=== PATIENT | male | born 1960 | race Hispanic/Latino ===

== ENCOUNTER 2020-10-01 23:51 | Inpatient (IN) | payer SELFPAY ==
[2020-10-02] MEDS ORDERED: Ondansetron PF 4 MG/2 ML Vial ONE ×2 (00:05→07:41)
[2020-10-02 00:42] LABS: Band 4 % (5-11); Hemoglobin 14.8 g/dL (14.0-18.0); Lymphocytes 44 % (21-51); MDiff Complete? YES; Mean Corpuscular Volume 87.7 fL (78.0-98.0); Metamyelocyte 8 % (0-0); Monocytes 8 % (0-10); Neutrophil 36 % (42-75); Platelet Count 134 thou/uL (130-400); Platelet Morphology Comment Appears Adequate; RBC Distribution Width 12.1 % (11.5-14.5); RBC Morphology Normal; Reflex for Review?? YES; White Blood Cell (WBC) Count 1.6 thou/uL (4.8-10.8)
[2020-10-02] MEDS ORDERED: Morphine 4 MG/ML VIAL ONE ×2 (00:42→01:31)
[2020-10-02] MEDS ORDERED: Acetaminophen 500 MG TAB ONE (01:05)
[2020-10-02 01:19] LABS: ALT (SGPT) 11 U/L (8-55); AST (SGOT) 28 U/L (5-34); Albumin 3.3 g/dL (3.4-4.8); Alkaline Phosphatase 132 U/L (40-110); Anion Gap 17 mmol/L (10-20); BUN (Urea Nitrogen) 15 mg/dL (8.4-25.7); Bilirubin, Total 0.7 mg/dL (0.2-1.2); Calc. Creatinine Clearance 0 mL/min (70-130); Calcium 8.5 mg/dL (7.8-10.44); Carbon Dioxide 19 mmol/L (23-31); Chloride 105 mmol/L (98-107); Globulin 3.8 g/dL (2.4-3.5); Glucose 244 mg/dL (80-115); Lipase 32 U/L (8-78); Potassium 3.8 mmol/L (3.5-5.1); Protein, Total 7.1 g/dL (5.8-8.1); Sodium 137 mmol/L (136-145)
[2020-10-02] MEDS ORDERED: MEROPENEM 1 GM/50 ML 1 GM in Premix Bag 1 BAG IVPB SCH ×4 (02:45→14:00)
[2020-10-02 04:07] VITALS: BMI 29.6
[2020-10-02] MEDS ORDERED: Morphine 4 MG/ML VIAL SLOW IVP PRN ×3 (04:07→09:22)
[2020-10-02] MEDS ORDERED: Ondansetron ODT 4 MG TAB SL PRN (04:15)
[2020-10-02] MEDS ORDERED: Ondansetron PF 4 MG/2 ML Vial IVP PRN (04:15)
[2020-10-02] MEDS ORDERED: Lactated Ringer's 1,000 ML IV SCH (04:15)
[2020-10-02 05:16] LABS: SARS-CoV-2 NAA Rapid Test Not Detected (NotDetected)
[2020-10-02 06:44] LABS: Lactic Acid 3.7 mmol/L (0.5-2.2)
[2020-10-02] MEDS ORDERED: Bupivacaine 0.25% HCL 30 ML VIAL ONE (06:51)
[2020-10-02] MEDS ORDERED: EPINEPHrine 1 MG/ML AMP ONE (06:51)
[2020-10-02] MEDS ORDERED: Fentanyl 100 MCG/2 ML VIAL ONE (06:52)
[2020-10-02] MEDS ORDERED: Levofloxacin 500 mg/D5W 100 ml Premix Bag ONE (07:28)
[2020-10-02] MEDS ORDERED: Succinylcholine 200 MG/10 ml SYRINGE FS ONE (07:41)
[2020-10-02] MEDS ORDERED: Lidocaine 1% PF 5 ML VIAL ONE (07:41)
[2020-10-02] MEDS ORDERED: PHENYLEPHRINE-NS 100 MCG/ML 10 ML SYRINGE ONE ×2 (07:41→08:21)
[2020-10-02] MEDS ORDERED: PROPOFOL 200 MG/20 ML VIAL ONE (07:41)
[2020-10-02] MEDS ORDERED: Glycopyrrolate 0.2 MG/ML 5 ML SYRINGE ONE (07:41)
[2020-10-02] MEDS ORDERED: Rocuronium Bromide 10 MG/ML (10ML VIAL) ONE (07:41)
[2020-10-02] MEDS ORDERED: ePHEDrine Sulfate 50 MG/10 ML VIAL ONE (07:41)
[2020-10-02] MEDS ORDERED: Dextrose 50% Abboject 50 ML SYRINGE SLOW IVP PRN (08:56)
[2020-10-02] MEDS ORDERED: HumaLOG 300 UNITS/3 ML VIAL SC PRN (08:56)
[2020-10-02] MEDS ORDERED: Dextrose 5% in Water 1,000 ML IV PRN (08:56)
[2020-10-02] MEDS ORDERED: Acetaminophen 325 MG TAB PO PRN ×2 (09:19)
[2020-10-02] MEDS ORDERED: HYDROcodone/Acetaminophen 5/325 mg Tablet PO PRN (09:21)
[2020-10-02] MEDS: Sodium Chloride 0.9% 1,000 ML IV SCH ×2 (11:07→20:31)
[2020-10-02 12:18] LABS: Band 44 % (5-11); Hemoglobin 12.8 g/dL (14.0-18.0); Lymphocytes 2 % (21-51); MDiff Complete? YES; Mean Corpuscular HGB CONC 31.4 g/dL (32.0-36.0); Mean Corpuscular Hemoglobin 28.2 pg (27.0-31.0); Mean Corpuscular Volume 89.7 fL (78.0-98.0); Mean Platelet Volume 9.9 fL (7.4-10.4); Metamyelocyte 9 % (0-0); Monocytes 4 % (0-10); Neutrophil 36 % (42-75); Platelet Count 107 thou/uL (130-400); Platelet Morphology Comment Appears Decreased; Polychromasia SLIGHT = 2-3 cells (100X) (0-2/hpf); RBC Distribution Width 12.2 % (11.5-14.5); Reactive Lymphocytes 5 % (0-10); Red Blood Cell (RBC) Count 4.55 mill/uL (4.70-6.10); Reflex for Review?? YES; Vacuoles MARKED; White Blood Cell (WBC) Count 14.7 thou/uL (4.8-10.8)
[2020-10-02] MEDS ORDERED: Iopamidol-370 76% 500 ML 1 ML ONE (14:46)
[2020-10-02 15:05] LABS: Hemoglobin A1c 13.2 % (4.0-6.0)
[2020-10-02] MEDS: HumaLOG 300 UNITS/3 ML VIAL SC PRN (15:12)
[2020-10-02] MEDS ORDERED: Sodium Chloride 0.9% 500 ML IV SCH (15:45)
[2020-10-02] MEDS: HYDROcodone/Acetaminophen 5/325 mg Tablet PO PRN (16:51)
[2020-10-02] MEDS: Famotidine/PF 20 mg/2ml Vial SLOW IVP SCH (20:31)
[2020-10-02] MEDS: Famotidine 20 MG TAB PO SCH (20:39)
[2020-10-02] MEDS: MEROPENEM 1 GM/50 ML 1 GM in Premix Bag 1 BAG IVPB SCH (21:52)
[2020-10-03] MEDS: HYDROcodone/Acetaminophen 5/325 mg Tablet PO PRN ×3 (00:12→23:36)
[2020-10-03 05:50] LABS: Anion Gap 12 mmol/L (10-20); BUN (Urea Nitrogen) 12 mg/dL (8.4-25.7); Calc. Creatinine Clearance 112 mL/min (70-130); Calcium 7.3 mg/dL (7.8-10.44); Carbon Dioxide 20 mmol/L (23-31); Chloride 110 mmol/L (98-107); Glucose 223 mg/dL (80-115); Potassium 3.3 mmol/L (3.5-5.1); Sodium 139 mmol/L (136-145)
[2020-10-03] MEDS: Sodium Chloride 0.9% 1,000 ML IV SCH ×2 (05:53→16:32)
[2020-10-03 05:54] LABS: Band 1 % (5-11); Eosinophils 2 % (0-10); Hemoglobin 12.6 g/dL (14.0-18.0); Lymphocytes 9 % (21-51); MDiff Complete? YES; Mean Corpuscular HGB CONC 32.3 g/dL (32.0-36.0); Mean Corpuscular Hemoglobin 28.8 pg (27.0-31.0); Mean Corpuscular Volume 89.1 fL (78.0-98.0); Mean Platelet Volume 10.7 fL (7.4-10.4); Metamyelocyte 5 % (0-0); Monocytes 1 % (0-10); Neutrophil 82 % (42-75); Platelet Count 97 thou/uL (130-400); Platelet Morphology Comment Appears Decreased; RBC Distribution Width 12.3 % (11.5-14.5); Red Blood Cell (RBC) Count 4.36 mill/uL (4.70-6.10); White Blood Cell (WBC) Count 13.8 thou/uL (4.8-10.8)
[2020-10-03] MEDS: MEROPENEM 1 GM/50 ML 1 GM in Premix Bag 1 BAG IVPB SCH ×3 (05:57→20:34)
[2020-10-03] MEDS: HumaLOG 300 UNITS/3 ML VIAL SC PRN ×2 (05:58→16:33)
[2020-10-03] MEDS ORDERED: metFORMIN 500 MG TAB PO SCH (08:00)
[2020-10-03] MEDS: Enoxaparin Sodium 40 MG/0.4 ML SYRINGE SC SCH (09:09)
[2020-10-03] MEDS: Famotidine/PF 20 mg/2ml Vial SLOW IVP SCH ×2 (09:09→20:57)
[2020-10-03] MEDS: Famotidine 20 MG TAB PO SCH ×2 (09:09→20:33)
[2020-10-03] MEDS ORDERED: Lantus 1000 UNITS/10 ML VIAL SC SCH (10:45)
[2020-10-03] MEDS ORDERED: diphenhydrAMINE 25 MG CAP PO PRN (12:12)
[2020-10-03] MEDS ORDERED: traMADol HCl 50 MG TAB PO PRN ×2 (12:13)
[2020-10-04] MEDS: Sodium Chloride 0.9% 1,000 ML IV SCH (02:38)
[2020-10-04] MEDS: MEROPENEM 1 GM/50 ML 1 GM in Premix Bag 1 BAG IVPB SCH ×3 (05:56→21:03)
[2020-10-04] MEDS: Famotidine 20 MG TAB PO SCH ×2 (08:48→21:02)
[2020-10-04] MEDS: Enoxaparin Sodium 40 MG/0.4 ML SYRINGE SC SCH (08:48)
[2020-10-04] MEDS: Famotidine/PF 20 mg/2ml Vial SLOW IVP SCH ×2 (08:49→22:52)
[2020-10-04] MEDS: Lantus 1000 UNITS/10 ML VIAL SC SCH (08:49)
[2020-10-04 10:28] LABS: Anion Gap 10 mmol/L (10-20); BUN (Urea Nitrogen) 8 mg/dL (8.4-25.7); Calc. Creatinine Clearance 120 mL/min (70-130); Calcium 7.4 mg/dL (7.8-10.44); Carbon Dioxide 24 mmol/L (23-31); Chloride 108 mmol/L (98-107); Glucose 188 mg/dL (80-115); Potassium 3.3 mmol/L (3.5-5.1); Sodium 139 mmol/L (136-145)
[2020-10-04 10:51] LABS: Band 14 % (5-11); Hemoglobin 13.2 g/dL (14.0-18.0); Lymphocytes 22 % (21-51); MDiff Complete? YES; Mean Corpuscular HGB CONC 31.8 g/dL (32.0-36.0); Mean Corpuscular Hemoglobin 28.2 pg (27.0-31.0); Mean Corpuscular Volume 88.8 fL (78.0-98.0); Mean Platelet Volume 10.3 fL (7.4-10.4); Monocytes 8 % (0-10); Neutrophil 56 % (42-75); Platelet Count 103 thou/uL (130-400); Platelet Morphology Comment Appears Decreased; RBC Distribution Width 12.5 % (11.5-14.5); RBC Morphology Normal; Red Blood Cell (RBC) Count 4.66 mill/uL (4.70-6.10); White Blood Cell (WBC) Count 9.6 thou/uL (4.8-10.8)
[2020-10-04] MEDS ORDERED: Potassium Chloride 20 MEQ TAB PO SCH (11:45)
[2020-10-04] MEDS: HumaLOG 300 UNITS/3 ML VIAL SC PRN (12:39)
[2020-10-04] MEDS: HYDROcodone/Acetaminophen 5/325 mg Tablet PO PRN (23:11)
[2020-10-05] MEDS: MEROPENEM 1 GM/50 ML 1 GM in Premix Bag 1 BAG IVPB SCH (05:08)
[2020-10-05 05:52] LABS: Anion Gap 9 mmol/L (10-20); BUN (Urea Nitrogen) 8 mg/dL (8.4-25.7); Calc. Creatinine Clearance 129 mL/min (70-130); Calcium 8.1 mg/dL (7.8-10.44); Carbon Dioxide 24 mmol/L (23-31); Chloride 108 mmol/L (98-107); Glucose 147 mg/dL (80-115); Potassium 3.4 mmol/L (3.5-5.1); Sodium 138 mmol/L (136-145)
[2020-10-05 06:10] LABS: Hemoglobin 12.7 g/dL (14.0-18.0); Mean Corpuscular HGB CONC 30.7 g/dL (32.0-36.0); Mean Corpuscular Hemoglobin 27.2 pg (27.0-31.0); Mean Corpuscular Volume 88.4 fL (78.0-98.0); Mean Platelet Volume 10.5 fL (7.4-10.4); Platelet Count 118 thou/uL (130-400); RBC Distribution Width 12.5 % (11.5-14.5); Red Blood Cell (RBC) Count 4.68 mill/uL (4.70-6.10); White Blood Cell (WBC) Count 7.3 thou/uL (4.8-10.8)
[2020-10-05 06:42] LABS: Band 19 % (5-11); Eosinophils 5 % (0-10); Lymphocytes 20 % (21-51); MDiff Complete? YES; Monocytes 4 % (0-10); Neutrophil 52 % (42-75); Platelet Morphology Comment Appears Decreased
[2020-10-05] MEDS ORDERED: Potassium Chloride 20 MEQ TAB PO SCH (08:15)
[2020-10-05] MEDS: Famotidine 20 MG TAB PO SCH (08:37)
[2020-10-05] MEDS: Lantus 1000 UNITS/10 ML VIAL SC SCH (08:38)
[2020-10-05] MEDS: Enoxaparin Sodium 40 MG/0.4 ML SYRINGE SC SCH (08:38)
[2020-10-05] MEDS ORDERED: Ciprofloxacin 500 MG TAB PO SCH ×2 (08:45→20:00)
[2020-10-05] MEDS: Famotidine/PF 20 mg/2ml Vial SLOW IVP SCH (08:59)
[2020-10-05 12:05] VITALS: BP 147/85; TEMP 97.4
[2020-10-07 10:13] LABS: Fungus Stain Final report (.)
== END 2020-10-05 14:02 | disposition home or self-care (01) | DRG 853 ==
LOC: ERS 23:51 → SJJU 10-02 02:34 → OBSVTOIN 10-02 02:34
PROVIDERS: ADMIT Surgery; ATTEND Surgery
PROC: 0DTJ4ZZ Resection of Appendix, Percutaneous Endoscopic Approach (ICD-10-PCS; principal; 2020-10-02)
PROC: 3E033XZ Introduction of Vasopressor into Peripheral Vein, Percutaneous Approach (ICD-10-PCS; 2020-10-02)
DX: A41.51 Sepsis due to Escherichia coli [E. coli] (principal); R65.21 Severe sepsis with septic shock; K35.891 Other acute appendicitis without perforation, with gangrene; I45.2 Bifascicular block; E87.2 Acidosis; D69.59 Other secondary thrombocytopenia; E11.22 Type 2 diabetes mellitus with diabetic chronic kidney disease; N18.2 Chronic kidney disease, stage 2 (mild); Z20.822 Contact with and (suspected) exposure to COVID-19; E87.6 Hypokalemia; Z87.891 Personal history of nicotine dependence; Z98.42 Cataract extraction status, left eye; Z98.41 Cataract extraction status, right eye; Z88.0 Allergy status to penicillin; Z88.8 Allergy status to other drugs, medicaments and biological substances
CPT/HCPCS: 36415; 36416; 74177; 80048; 80053; 83036; 83605; 83690; 83735; 85025; 85060; 87040; 87070; 87076; 87077; 87102; 87149; 87186; 87205; 87206; 88304; 93005; 96365; 96375; 96376; G0378; J0171; J1650; J1815; J1956; J2185; J2270; J2405; J2704; J3010; Q0163; Q9967; S0020; S0028; U0002